=== PATIENT | male | born 1980 | race Caucasian/White ===

== ENCOUNTER 2018-12-31 08:14 | Emergency (ER) | payer OTHER ==
[2018-12-31 08:32] VITALS: BP 142/82
--- NOTE | 2018-12-31 08:35 | UC ---
Respiratory Complaint HPI - HPI Summary HPI Summary: Patient presents to urgent care reporting head congestion that has settled his chest. Patient with a coarse cough productive of yellow sputum. Patient states she's been taking [id number] cough medication with little improvement. Patient takes Zyrtec-D daily. Patient states his kids were sick last week. Patient states he started to get a cold and [facility] the [facility]. Patient states he didn't sleep well got dehydrated and feels that fell on his chest. Patient with a history of recurrent bronchitis. Patient has an albuterol inhaler that has 2+ less. Patient reports short-term relief with that. Patient also states his sinuses are congested and is ears feel puffy. No nausea vomiting patient eating and drinking okay no documented fevers or chills. Patient's medications reviewed this visit. - History of Current Complaint Chief Complaint: UCRespiratory Stated Complaint: CHEST CONGESTION Time Seen by Provider: 12/31/18 08:35 Hx Obtained From: Patient Onset/Duration: Gradual Onset Severity Currently: None Pain Intensity: 0 - Allergies/Home Medications Allergies/Adverse Reactions: Allergies Allergy/AdvReac Type Severity Reaction Status Date / Time No Known Allergies Allergy Verified 12/31/18 08:25 Home Medications: Home Medications Albuterol Sulfate [Proventil Hfa] 1 puff PO PRN 12/31/18 [History] Cetirizine HCl/Pseudoephedrine [Zyrtec-D Tablet] 1 tab PO PRN 12/31/18 [History] PMH/Surg Hx/FS Hx/Imm Hx Previously Healthy: Yes - Surgical History Surgical History: Yes Surgery Procedure, Year, and Place: hernia, - Family History Known Family History: Positive: Non-Contributory - Social History Occupation: Employed Full-time Lives: With Family Alcohol Use: Occasionally Substance Use Type: None Smoking Status (MU): Never Smoked Tobacco Review of Systems All Other Systems Reviewed And Are Negative: Yes Constitutional: Positive: Fatigue Eyes: Positive: Negative ENT: Positive: Nasal Discharge, Sinus Congestion, Sinus Pain/Tenderness Respiratory: Positive: Cough Is Patient Immunocompromised?: No Physical Exam - Summary Physical Exam Summary: Vital Signs Reviewed: Yes A+Ox3, no distress, congested Eyes: Conjunctiva Clear, [place]. EOM intact and full ENT: Hearing grossly normal scant fluid left ear, turbinates inflammed and boggy, + mild TTP max sinuses mmoist, uvula midline, no exudate, no erythema Neck: Positive: Supple Respiratory: Positive: No respiratory distress, No accessory muscle use + CTA throughout no w/r end exp wheeze + BS Throughout Cardiovascular: RRR nl s1, s2 no m/r CBT <2 sec abd soft + BS nt/nd no guarding, no distension Musculoskeletal Exam: AUGUSTINE x 4 without difficulty Strength Intact, ROM Intact Neurological: Positive: Alert, + sensation throughout Psychological: Positive: Normal Response To Family Skin: Positive: no rash, no ecchymosis Triage Information Reviewed: Yes Vital Signs: Initial Vital Signs Temp 97.3 F 12/31/18 08:27 Pulse 84 12/31/18 08:27 Resp 16 12/31/18 08:27 BP 142/82 12/31/18 08:27 Pulse Ox 96 12/31/18 08:27 Respiratory Course/Dx - Course Course Of Treatment: Patient presents reporting progressive head congestion sinus chest. Patient with cough and respiratory wheeze. No nausea vomiting. Patient subsequently well related to cough. Patient with a history of recurrent bronchitis. Patient states he got dehydrated and poor sleep over the weekend due to celebratory weekend. On exam vital signs are stable. Patient does have congestion in the sinuses and left ear. Patient does have a slight cough and an x-ray wheeze. Discussed with patient length with likely a viral syndrome. We'll start patient on Tessalon Perles as well as Robitussin with codeine. Narcotic precautions discussed. Patient without addiction history. We'll also refill the albuterol with a spacer. Recommend patient start Augmentin after 48 hours if symptoms persist. Patient continue taking Zyrtec-D. Patient comfortable in agreement with plan. Borderline BP - - recommend f/u with pcp - Differential Dx/Diagnosis Provider Diagnosis: Acute bronchitis, Upper respiratory infection Discharge - Sign-Out/Discharge Documenting (check all that apply): Patient Departure All imaging exams completed and their final reports reviewed: No Studies - Discharge Plan Condition: Stable Disposition: HOME Prescriptions: Albuterol HFA INHALER* [Ventolin HFA Inhaler*] 2 puff INH Q4H PRN #1 mdi PRN Reason: wheeze Amoxicillin/Clavulanate TAB* [Augmentin TAB 875*] 875 mg PO BID #20 tab Benzonatate CAP* [Tessalon 100 MG CAP*] 100 mg PO TID #21 cap guaiFENesin/CODIEN 100MG-10MG* [Robitussin AC 100Mg-10Mg*] 10 ml PO Q8HR PRN # 100 ml MDD 30 PRN Reason: Cough Inhaler, Assist Devices [Aerochamber Mv] 1 each PO Q4HR #1 spacer Patient Education Materials: Upper Respiratory Infection (ED), Acute Bronchitis (ED) Referrals: No Primary Care Phys,NOPCP [Primary Care Provider] - Additional Instructions: -Take prednisone exactly as prescribed until gone -Use your albuterol puffer - 2 puffs every 4 hours for the next 2 days - then as needed -Stay well hydrated - avoid excess caffeine and all alcohol - eat regular, healthy meals - humidify the air in the room where you sleep - boil water, run a hot steam shower, vaporizer, cups of water by heat register - okay to take over the counter decongestant and cough medication - you have been given a prescription for Robitussin with codeine - this contains a narcotic - do not drive, operate machinery or drink alcohol while taking this medication - it causes drowsiness - If your symptoms progress over the next 48 hours okay to start antibiotics as prescribed -- These infections are spread by secretions - do NOT share eating or drinking utensils - clean items you share with other people such as cell phones, computer mouse, TV remote, computer tablets,etc.. Once you start to feel better (or after you have been antibiotics for 2 days) change your toothbrush and your pillowcase. -Contact your doctor to arrange a follow-up appointment this week. Call your doctor, return here or go to the emergency department with any questions or concerns - Billing Disposition and Condition Condition: STABLE Disposition: Home
== END 2018-12-31 09:00 | disposition home or self-care (01) ==
LOC: UCEAST 08:14
DX: J40 Bronchitis, not specified as acute or chronic (principal); J06.9 Acute upper respiratory infection, unspecified
CPT/HCPCS: 99202; G0463